=== PATIENT | male | born 1985 | race Caucasian/White ===

== ENCOUNTER 2018-02-24 00:30 | Emergency (ER) | payer OTHER, MEDICARE ==
[~2018-02-24] VITALS: Ht 172.7 cm; Wt 54.4 kg
[2018-02-24 00:36] VITALS: BP 130/77
--- NOTE | 2018-02-24 00:37 | NUR ---
to bed # 2 ambulatory, report given to Javad Lawson
--- NOTE | 2018-02-24 00:47 | NUR ---
32/M BIB FAMILY, C/O ANXIETY ATTACK. PT REPORTS BEING STRESSED AND FEELING ANXIOUS WORSENING X1 DAY, PT REPORTS HAVING FAMILY ISSUES AND WORRYING ABOUT SISTER'S HEALTH. PT REPORTS INTERMITTENT CHEST DISCOMFORT EARLIER BUT DENIES ANY PAIN AT THIS TIME. PT REPORTS SLIGHT SOB. SPO2 99% ON RA, RR 26 EVEN AND SLIGHTLY TACHYPNIC. HR 121 AT THIS TIME. 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
--- NOTE | 2018-02-24 01:13 | NUR ---
Dr. Saldivar evaluating patient at bedside.
[2018-02-24] MEDS ORDERED: LORazepam 2 MG/ML VIAL IVP ONE (01:40)
--- NOTE | 2018-02-24 01:51 | NUR ---
EKG PERFORMED AT BEDSIDE
[2018-02-24 02:19] LABS: HEMATOCRIT 43.4 % (36-52); HEMOGLOBIN 14.5 g/dL (12.0-18.0); MEAN CORPUSCULAR HEMOGLOBIN 31 pg (27-31); MEAN CORPUSCULAR HGB CONC 33 g/dL (33-37); MEAN CORPUSCULAR VOLUME 92.4 fL (80-94); PLATELET COUNT (AUTO) 252 K/uL (140-450); RED BLOOD CELL COUNT(AUTO) 4.69 MIL/uL (4.20-6.10); RED CELL DISTRIBUTION WIDTH 13.8 % (11.6-13.7); WHITE BLOOD COUNT (AUTO) 6.9 K/uL (4.8-10.8)
[2018-02-24 02:20] LABS: BASOPHILS # (AUTO) 0.2 K/uL (0.00-0.22); BASOPHILS % (AUTO) 3.3 % (0.0-2.0); EOSINOPHILS # (AUTO) 0.2 K/uL (0-0.4); LYMPHOCYTES # (AUTO) 1.7 K/uL (2.0-11.5); LYMPHOCYTES % (AUTO) 24.4 % (20.5-51.1); MONOCYTES # (AUTO) 0.8 K/uL (0.8-1.0); NEUTROPHILS % (AUTO) 57.3 % (42.2-75.2)
[2018-02-24 02:23] LABS: ANION GAP 9.4 (8-16); CARBON DIOXIDE 26.2 mmol/L (21-32); CHLORIDE 108 mmol/L (98-107); CREATININE 1.2 mg/dL (0.7-1.3); GFR ARICAN-AMERICAN 91 mL/min (>90); GLUCOSE 76 mg/dL (74-106); POTASSIUM 3.6 mmol/L (3.5-5.1); SODIUM SERUM 140 mmol/L (136-145); UREA NITROGEN, BLOOD 13 mg/dL (7-18)
[2018-02-24 02:27] LABS: PROTHROMBIN TIME 10.1 secs (10.8-13.4)
[2018-02-24 02:37] LABS: ALBUMIN 4.7 g/dL (3.4-5.0); ASPARTATE AMINOTRANSFERASE 13 U/L (15-37); THYROID STIMULATING HORMONE 1.59 uIU/mL (0.34-3.74); TOTAL BILIRUBIN 0.4 mg/dL (0.0-1.0)
[2018-02-24 02:38] LABS: ACETAMINOPHEN < 0.5 ug/ml (10-30); SALICYLATE < 2.8 mg/dL (2.8-20.0)
--- NOTE | 2018-02-24 02:55 | NUR ---
PT RESTING IN BED, VSS, PT REPORTS IMPROVEMENT INS ANXIETY AND CHEST DISCOMFORT. ALL NEEDS MET.
[2018-02-24 03:32] LABS: APPEARANCE,URINE CLEAR (CLEAR); BILIRUBIN,URINE NEGATIVE (NEGATIVE); BLOOD, URINE NEGATIVE (NEGATIVE); COLOR,URINE YELLOW (YELLOW); LEUKOCYTE ESTERASE ,URINE NEGATIVE (NEGATIVE); NITRITE, URINE NEGATIVE (NEGATIVE); PH,URINE 6.5 (5.0-9.0); UGLUCOSE NEGATIVE (NEGATIVE)
[2018-02-24 04:31] VITALS: BP 116/65
== END 2018-02-24 04:30 | disposition home or self-care (01) ==
LOC: MED 00:30
DX: F41.0 Panic disorder [episodic paroxysmal anxiety] (principal); F84.0 Autistic disorder; R94.31 Abnormal electrocardiogram [ECG] [EKG]; R79.1 Abnormal coagulation profile
CPT/HCPCS: 36415; 71045; 80053; 81003; 84443; 84484; 85025; 85379; 85610; 85730; 93005; 96374; 99285; G0480; G0482; J2060; Q0092